=== PATIENT | female | born 1990 | race American Indian/Alaskan Native ===

== ENCOUNTER 2019-06-23 10:06 | Emergency (ER) | payer OTHER ==
--- NOTE | 2019-06-23 11:34 | Event Note ---
ED Screening Note ED Screening Note: pt states she is 6 weeks states began having light vaginal spotting yesterday urine preg test (+) at home has not seen HAND WOOD SANDER no abd pain 1st no PMhx no allergies to meds lnmp: may 07 This initial assessment/diagnostic orders/clinical plan/treatment(s) is/are subject to change based on patients health status, clinical progression and re- assessment by fellow clinical providers in the ED. Further treatment and workup at subsequent clinical providers discretion. Patient/guardian urged not to elope from the ED as their condition may be serious if not clinically assessed and managed. Initial orders include: labs, US, UA
[2019-06-23 11:36] VITALS: BP 148/104
[2019-06-23 11:44] LABS: Basophils # (Auto) 0.1 K/mm3 (0.0-0.1); Basophils % (Auto) 1.6 % (0.0-1.8); Eosinophils # (Auto) 0.1 K/mm3 (0.0-0.4); Eosinophils % (Auto) 1.1 % (0.0-4.3); Hematocrit 38.5 % (30.3-42.9); Hemoglobin 13.2 gm/dl (10.1-14.3); Lymphocytes # (Auto) 1.9 K/mm3 (1.2-5.4); Lymphocytes % (Auto) 30.5 % (13.4-35.0); Mean Corpuscular HGB Conc 34 % (30-34); Mean Corpuscular Volume 93 fl (79-97); Monocytes # (Auto) 0.5 K/mm3 (0.0-0.8); Monocytes % (Auto) 8.1 % (0.0-7.3); Platelet Count 274 K/mm3 (140-440); Red Blood Count 4.14 M/mm3 (3.65-5.03); Red Cell Distribution Width 13.7 % (13.2-15.2)
[2019-06-23 12:12] LABS: Bilirubin,Urine NEG (Negative); Blood,Urine SM (Negative); Color,Urine Yellow (Yellow); Mucus,Urine 2+ /HPF; Protein,Urine <15 mg/dL mg/dL (Negative); Urobilinogen,Urine < 2.0 mg/dL (<2.0)
--- NOTE | 2019-06-24 07:52 | Ultrasound Report ---
US OB transvaginal, US OB <= 14 weeks fetus INDICATION / CLINICAL INFORMATION: VAGINAL SPOTTING. COMPARISON: None available. FINDINGS: Transabdominal and transvaginal imaging was performed. Intrauterine gestational sac is noted with pole and yolk sac. [place]-rump length is 0.23 cm (5 w eeks, 5 days). Embryonic cardiac activity was detected at 83 bpm. Maternal left ovary is unremarkable. There is a complex cystic lesion in the right ovary/adnexa. This measures 8.7 x 5.5 x 5.8 cm. There is trace free fluid in the cul-de-sac. IMPRESSION: 1. Intrauterine gestational sac is seen with yolk sac and pole. The wire web worker detected be emb ryonic cardiac activity at 83 bpm. Yolk sac is somewhat irregular in configuration with ovoid shape. Short-term sonographic follow-up is recommended. Correlation with serial beta hCG levels should also be considered. 2. Large complex cystic lesion in the right ovary/adnexa. It is difficult to determine if this is adn exal or ovarian in etiology. This could be a large right ovarian cyst along with hydrosalpinx. 3. Trace free fluid in the cul-de-sac. Signer Name: Sushil Ware MD Signed: 06/23/2019 12:38 PM Workstation Name: [id number]
--- NOTE | 2019-06-24 07:52 | Ultrasound Report ---
US OB transvaginal, US OB <= 14 weeks fetus INDICATION / CLINICAL INFORMATION: VAGINAL SPOTTING. COMPARISON: None available. FINDINGS: Transabdominal and transvaginal imaging was performed. Intrauterine gestational sac is noted with pole and yolk sac. [place]-rump length is 0.23 cm (5 w eeks, 5 days). Embryonic cardiac activity was detected at 83 bpm. Maternal left ovary is unremarkable. There is a complex cystic lesion in the right ovary/adnexa. This measures 8.7 x 5.5 x 5.8 cm. There is trace free fluid in the cul-de-sac. IMPRESSION: 1. Intrauterine gestational sac is seen with yolk sac and pole. The front end manager detected be emb ryonic cardiac activity at 83 bpm. Yolk sac is somewhat irregular in configuration with ovoid shape. Short-term sonographic follow-up is recommended. Correlation with serial beta hCG levels should also be considered. 2. Large complex cystic lesion in the right ovary/adnexa. It is difficult to determine if this is adn exal or ovarian in etiology. This could be a large right ovarian cyst along with hydrosalpinx. 3. Trace free fluid in the cul-de-sac. Signer Name: Sushil Ware MD Signed: 06/23/2019 12:38 PM Workstation Name: [id number]
== END 2019-06-23 14:25 | disposition left against medical advice (07) ==
LOC: ED 10:06
DX: O26.851 Spotting complicating pregnancy, first trimester (principal); Z53.21 Procedure and treatment not carried out due to patient leaving prior to being seen by health care provider
CPT/HCPCS: 36415; 76801; 76817; 81001; 84702; 85025; 86900; 86901